=== PATIENT | female | born 1950 | race Caucasian/White ===

== ENCOUNTER 2017-02-23 10:05 | Emergency (ER) | payer BC ==
[2017-02-23] MEDS ORDERED: HYDROcod/ACETAM 5/325 MG TABLET PO STA (10:43)
[2017-02-23] MEDS ORDERED: KETOROLAC 60 MG/2 ML VIAL IM STA (10:43)
[2017-02-23] MEDS ORDERED: KETOROLAC 30 MG/ML VIAL ONE (10:53)
--- NOTE | 2017-02-23 12:21 | CT Report ---
EXAM: CT CHEST EXAM DATE: 02/23/2017 11:24 AM. CLINICAL HISTORY: Sub acute left chest wall trauma. COMPARISONS: None. TECHNIQUE: Routine helical CT imaging was performed through the chest. IV contrast: None. Reconstruct ions: Coronal and sagittal. In accordance with CT protocol optimization, one or more of the following dose reduction techniques w ere utilized for this exam: automated exposure control, adjustment of mA and/or KV based on patient s ize, or use of iterative reconstructive technique. FINDINGS: There is no evidence of a mediastinal mass or hematoma. There is no pulmonary mass, infiltrate, pleur al effusion or pneumothorax seen. No displaced fracture is identified. Mild degenerative changes of t he thoracic spine are noted. Gallstones are seen within the gallbladder. The remainder of the upper abdominal organs demonstrate a normal noncontrast CT appearance. Impression: Cholelithiasis without evidence of obstruction. [facility] Referring Provider Line: [phone] SITE ID: [id number]
[2017-02-23 12:36] VITALS: BP 141/86
--- NOTE | 2017-02-23 13:22 | ED Physician Documentation ---
History of Present Illness - Stated complaint Stated Complaint: GLF - Chief complaint Chief Complaint: General - History obtained from History obtained from: Patient - History of Present Illness Timing: How many days ago - Additonal information Additional information: This patient is a pleasant 66-year-old female who currently resides at home. She has a history of underlying hypertension otherwise she is fairly healthy. She fell in the bathtub on February 20 and from that time to the present she has persistent left-sided rib pain. She thought she was getting better but had a paroxysm of acute pain today in the left costal margin and decided to come in for evaluation. She denies any pain or injury to head, neck, chest, or abdomen other than the sided location of the left costal margin. She has not had a fever or cough there is no nausea, vomiting, abdominal pain or urinar She has a history of underlying hypertension otherwise she is fairly healthy. She fell in the bathtub on February 20 and from that time to the present she has persistent left-sided rib pain. She thought she was getting better but had a paroxysm of acute pain today in the left costal margin and decided to come in for evaluation. She denies any pain or injury to head, neck, chest, or abdomen other than the sided location of the left costal margin. She has not had a fever or cough there is no nausea, vomiting, abdominal pain or urinary symptoms. She has no extremity pain or injury. Review of systems: Pertinent positives and negatives see history of present illness otherwise all other systems have been reviewed and are normal. PD PAST MEDICAL HISTORY - Past Medical History Cardiovascular: Hypertension Respiratory: None Neuro: Fainting Endocrine/Autoimmune: None GI: None : None HEENT: Chronic hearing loss Psych: Anxiety Derm: None - Past Surgical History Past Surgical History: No - Present Medications Home Medications: Ambulatory Orders Medication Instructions Recorded Confirmed Loratadine [Claritin] 10 mg PO DAILY 09/11/13 02/23/17 Venlafaxine [Effexor] 75 mg PO DAILY 09/11/13 02/23/17 HYDROcod/ACETAM 5/325 [[place] 5/325] 1 - 2 ea PO Q6H PRN #15 tablet 02/23/17 Losartan [Cozaar] 50 mg PO DAILY 02/23/17 02/23/17 - Allergies Allergies/Adverse Reactions: Allergies Allergy/AdvReac Type Severity Reaction Status Date / Time No Known Drug Allergies Allergy Verified 02/23/17 10:15 - Social History Does the pt smoke?: No Smoking Status: Former smoker Does the pt drink ETOH?: Yes Does the pt have substance abuse?: No - POLST Patient has POLST: No PD ED PE NORMAL - Respiratory Respiratory: Other (Left costal margin pain and tenderness on palpation, small bruise to left posterior iliac crest) Results - Vitals Vitals: Vital Signs - 24 hr 02/23/17 02/23/17 10:12 12:35 Temperature 35.7 C L 36.0 C L Heart Rate 105 H 84 Respiratory 16 19 Rate Blood Pressure 138/74 H 141/86 H O2 Saturation 100 95 Oxygen O2 Source Room air PD MEDICAL DECISION MAKING - ED course ED course: Patient is well appearing female status post fall in the bathtub a couple days ago with pain and tenderness left costal margin. She is breathing comfortably and has normal pulse oximetry her belly is palpated and is soft and nontender. I suspect that she might have rib fractures a CT without contrast was that of her thoraxSo therefore a CAT scan of the patient's abdomen and pelvis was ordered. The resultsAt this CT scan are completely negative for evidence of injury. I am not suspecting any intra-abdominal etiology so was done without contrast. She was found to have incidental gallstones which were discussed with the patient. At this point in time 4 days out from her injury she is doing well I will prescribe a small amount of pain medication to ease her discomfort Disposition: To home Clinical impression: 1. Left costal margin contusion 2. Incidental cholelithiasis Departure - Departure Disposition: 01 Home, Self Care Clinical Impression: Chest wall contusion Condition: Good Instructions: ED Contusion Chest Wall Follow-Up: Mariluz Baez MD [Primary Care Provider] - Prescriptions: HYDROcod/ACETAM 5/325 [[place] 5/325] 1 - 2 ea PO Q6H PRN #15 tablet PRN Reason: Pain
== END 2017-02-23 13:27 | disposition home or self-care (01) ==
LOC: ED 10:05
DX: S20.212A Contusion of left front wall of thorax, initial encounter (principal); W19.XXXA Unspecified fall, initial encounter; Y92.002 Bathroom of unspecified non-institutional (private) residence as the place of occurrence of the external cause; I10 Essential (primary) hypertension; F41.9 Anxiety disorder, unspecified; Z87.891 Personal history of nicotine dependence
CPT/HCPCS: 71250; 96372; 99281; 99283

== ENCOUNTER 2019-04-29 16:27 | Emergency (ER) | payer MEDICARE, BC ==
[2019-04-29 17:11] LABS: BASOPHILS % (AUTO) 0.3 %; EOSINOPHILS # (AUTO) 0.1 10^3/uL (0.0-0.7); EOSINOPHILS % (AUTO) 0.8 %; HGB - HEMOGLOBIN 11.8 g/dL (12.0-16.0); LYMPHOCYTES # (AUTO) 1.2 10^3/uL (1.5-3.5); LYMPHOCYTES % (AUTO) 11.8 %; MEAN CORPUSCULAR HGB CONC 31.6 g/dL (32.0-36.0); MEAN CORPUSCULAR VOLUME 98.2 fL (81.0-99.0); MEAN PLATELET VOLUME 10.5 fL (7.9-10.8); MONOCYTES # (AUTO) 0.5 10^3/uL (0.0-1.0); MONOCYTES % (AUTO) 4.6 %; NEUTROPHILS # (AUTO) 8.1 10^3/uL (1.5-6.6); NEUTROPHILS % (AUTO) 82.1 %; PLT - PLATELET COUNT 222 10^3/uL (130-450); RED BLOOD COUNT 3.81 10^6/uL (4.20-5.40); RED CELL DISTRIBUTION WIDTH 13.4 % (12.0-15.0); WHITE BLOOD COUNT 9.8 x10^3/uL (4.8-10.8)
--- NOTE | 2019-04-29 17:11 | XRAY Report ---
Reason: chest pressure Procedure Date: 04/29/2019 Accession Number: [id number] / [id number] Procedure: XR - Chest 1 View X-Ray CPT Code: 83658 FULL RESULT: EXAM: CHEST RADIOGRAPHY EXAM DATE: 04/29/2019 04:50 PM. CLINICAL HISTORY: Chest pressure. COMPARISON: 09/11/2013 10:34 AM. TECHNIQUE: 1 view. FINDINGS: Lungs/Pleura: No focal opacities evident. No pleural effusion. No pneumothorax. Mediastinum: Heart size is normal. Trachea is midline. Other: None. IMPRESSION: Negative for an acute cardiopulmonary abnormality. [facility]
[2019-04-29 17:25] LABS: ALBUMIN 3.6 g/dL (3.2-5.5); ALBUMIN/GLOBULIN RATIO 0.9 (1.0-2.2); BILIRUBIN,TOTAL 0.2 mg/dL (0.2-1.0); CALCIUM 9.1 mg/dL (8.5-10.3); CREATININE 0.9 mg/dL (0.4-1.0); TOTAL PROTEIN 7.5 g/dL (6.7-8.2)
[2019-04-29] MEDS ORDERED: LIDOCAINE VISCOUS 2% 15 ML UDC MM STA (18:06)
[2019-04-29] MEDS ORDERED: MAG HYDROX/AL HYDROX/SIMETH 30 ML UDC PO STA (18:06)
[2019-04-29] MEDS ORDERED: ASPIRIN CHEW 81 MG TABLET PO STA (18:08)
--- NOTE | 2019-04-29 18:08 | ED Physician Documentation ---
PD HPI CHEST PAIN - Stated complaint Stated Complaint: CP - Chief complaint Chief Complaint: Cardiac - History obtained from History obtained from: Patient, Family - History of Present Illness Timing - onset: Today (68-year-old woman with no history of coronary disease developed substernal pressure that has been constant and nonradiating since 10 AM this morning. She tried some alcohol for it which is not abnormal for her In the mornings and it did not help. It is worse if she takes a deep breath. She denies nausea, sweats. She is a little dizzy with it. She had remotely negative stress test. She does not feel short of breath. No leg pain or swelling.) Review of Systems Ten Systems: 10 systems reviewed and negative Constitutional: denies: Fever, Chills Cardiac: reports: Chest pain / pressure. denies: Palpitations Respiratory: denies: Dyspnea, Cough GI: denies: Abdominal Pain PD PAST MEDICAL HISTORY - Past Medical History Past Medical History: Yes Cardiovascular: Hypertension Respiratory: None Endocrine/Autoimmune: None GI: None : None HEENT: Chronic hearing loss Psych: Anxiety Derm: None - Past Surgical History Past Surgical History: No - Present Medications Home Medications: Ambulatory Orders Medication Instructions Recorded Confirmed Loratadine [Claritin] 10 mg PO DAILY 09/11/13 02/23/17 Venlafaxine [Effexor] 75 mg PO DAILY 09/11/13 02/23/17 HYDROcod/ACETAM 5/325 [[place] 5/325] 1 - 2 ea PO Q6H PRN #15 tablet 02/23/17 Losartan [Cozaar] 50 mg PO DAILY 02/23/17 02/23/17 - Allergies Allergies/Adverse Reactions: Allergies Allergy/AdvReac Type Severity Reaction Status Date / Time No Known Drug Allergies Allergy Verified 02/23/17 10:15 - Social History Does the pt smoke?: No Smoking Status: Never smoker Does the pt drink ETOH?: Yes Does the pt have substance abuse?: No - POLST Patient has POLST: No PD ED PE NORMAL - Vitals Vital signs reviewed: Yes - General General: Alert and oriented X 3, No acute distress - HEENT HEENT: PERRL, EOMI - Neck Neck: Supple, no meningeal sign, No bony TTP - Cardiac Cardiac: RRR, No murmur - Respiratory Respiratory: No respiratory distress, Clear bilaterally - Abdomen Abdomen: Non tender - Back Back: No CVA TTP, No spinal TTP - Derm Derm: Normal color, Warm and dry - Extremities Extremities: No edema, No calf tenderness / cord - Neuro Neuro: Alert and oriented X 3, Normal speech - Psych Psych: Normal mood, Normal affect Results - Vitals Vitals: Vital Signs - 24 hr 04/29/19 04/29/19 16:37 18:00 Temperature 36.2 C L Heart Rate 100 91 Respiratory 20 19 Rate Blood Pressure 119/58 L 136/73 H O2 Saturation 97 95 Oxygen O2 Source Room air - EKG (time done) 1632 Rate: Rate (enter#) (103) Rhythm: Sinus tachycardia [place]: Normal Intervals: Normal [place] QRS: Normal Ischemia: Normal ST segments Computer interpretation: Agree with computer - Labs Labs: Laboratory Tests 04/29/19 04/29/19 04/29/19 17:02 17:02 17:02 WBC 9.8 RBC 3.81 L Hgb 11.8 L Hct 37.4 MCV 98.2 MCH 31.0 MCHC 31.6 L RDW 13.4 Plt Count 222 MPV 10.5 Neut # (Auto) 8.1 H Lymph # (Auto) 1.2 L [place] # (Auto) 0.5 Eos # (Auto) 0.1 Baso # (Auto) 0.0 Absolute Nucleated RBC 0.00 Nucleated RBC % 0.0 D-Dimer 228.5 Sodium 140 Potassium 3.8 Chloride 103 Carbon Dioxide 26 Anion Gap 11.0 BUN 11 Creatinine 0.9 Estimated GFR (MDRD) 62 L Glucose 98 Calcium 9.1 Total Bilirubin 0.2 AST 55 H ALT 65 H Alkaline Phosphatase 105 Troponin I High Sens Total Protein 7.5 Albumin 3.6 Globulin 3.9 Albumin/Globulin Ratio 0.9 L Lipase 42 04/29/19 04/29/19 17:02 19:00 WBC RBC Hgb Hct MCV MCH MCHC RDW Plt Count MPV Neut # (Auto) Lymph # (Auto) [place] # (Auto) Eos # (Auto) Baso # (Auto) Absolute Nucleated RBC Nucleated RBC % D-Dimer Sodium Potassium Chloride Carbon Dioxide Anion Gap BUN Creatinine Estimated GFR (MDRD) Glucose Calcium Total Bilirubin AST ALT Alkaline Phosphatase Troponin I High Sens 9.2 8.1 Total Protein Albumin Globulin Albumin/Globulin Ratio Lipase PD MEDICAL DECISION MAKING - ED course ED course: This is a 68-year-old woman with 7 hours of some substernal chest chest pressure. She is an alcoholic and has no abdominal tenderness. Labs reviewed initially, negative high-sensitivity troponin. Mild transaminitis. Negative chest x-ray. We will trial a GI cocktail and get a second troponin. This is a 68-year-old woman who presents with atypical chest pain that is been ongoing for about 6 hours on arrival. 2- troponins in the department and a completely nonischemic EKG. Departure - Departure Disposition: 01 Home, Self Care Clinical Impression: Atypical chest pain Condition: Good Record reviewed to determine appropriate education?: Yes Instructions: ED Chest Pain Atypical Unkn Cause Comments: Try to cut back on your drinking because your liver is inflamed. Your testing today suggests against any heart issues but she should follow-up with your doctor tomorrow and discuss stress testing. Return for new or worsening symptoms.
[2019-04-29 19:47] VITALS: BP 119/74
== END 2019-04-29 19:40 | disposition home or self-care (01) ==
LOC: ED 16:27
DX: R07.89 Other chest pain (principal); R00.0 Tachycardia, unspecified; R74.0 Nonspecific elevation of levels of transaminase and lactic acid dehydrogenase [LDH]; I10 Essential (primary) hypertension
CPT/HCPCS: 36415; 71045; 80053; 83690; 84484; 85025; 85379; 93005; 99284; A9270

== ENCOUNTER 2020-06-24 16:33 | Outpatient (CLI) | payer MEDICARE, BC | END 2020-06-24 16:34 | disposition home or self-care (01) | LOC: COV 16:33 | PROVIDERS: ATTEND Family Medicine | DX: R50.9 Fever, unspecified (principal); M79.10 Myalgia, unspecified site; R53.83 Other fatigue; R19.7 Diarrhea, unspecified; R09.81 Nasal congestion; Z20.828 Contact with and (suspected) exposure to other viral communicable diseases ==

== ENCOUNTER 2021-08-31 10:53 | Outpatient (CLI) | payer MEDICARE, BC ==
--- NOTE | 2021-09-07 11:46 | Mammography Report ---
BILATERAL DIGITAL SCREENING MAMMOGRAM 3D/2D WITH EXAGGERATED CC: 08/31/2021 CLINICAL: Routine screening. No prior exams were available for comparison. The tissue of both breasts is predominantly fatty. There is a possible focal asymmetry in the left breast at 11 o'clock middle depth. No other significant masses, calcifications, or other findings are seen in either breast. IMPRESSION: INCOMPLETE: NEEDS ADDITIONAL IMAGING EVALUATION The possible focal asymmetry in the left breast is indeterminate. Additional views with possible ult rasound are recommended. This exam was interpreted at Station ID: [id number]. NOTE: For mammograms, a report in lay terms will be sent to the patient. Approximately 15% of breast malignancies will not be visualized mammographically. In the management of a palpable breast mass, a negative mammogram must not discourage biopsy of a clinically suspicious lesion. Electronically Signed By: Ed Palomino M.D., jr/will:09/07/2021 09:40:03 ACR BI-RADS Category 0: Incomplete 3340F PARENCHYMAL PATTERN: (F) - The breast(s) demonstrate(s) diffuse fatty replacement. BI-RADS CATEGORY: (0) - 0 Mammo and [place] [id number] Immediate follow-up LATERALITY: (B)
== END 2021-08-31 10:54 | disposition home or self-care (01) ==
LOC: DI.S 10:53
PROVIDERS: ATTEND Nurse Practitioner Family
DX: Z12.31 Encounter for screening mammogram for malignant neoplasm of breast (principal); R92.8 Other abnormal and inconclusive findings on diagnostic imaging of breast

== ENCOUNTER 2022-01-09 11:04 | Outpatient (CLI) | payer MEDICARE, BC ==
[2022-01-09 15:28] LABS: BASOPHILS % (AUTO) 0.7 %; EOSINOPHILS # (AUTO) 0.1 10^3/uL (0.0-0.7); EOSINOPHILS % (AUTO) 1.4 %; HCT - HEMATOCRIT 35.9 % (37.0-47.0); HGB - HEMOGLOBIN 11.7 g/dL (12.0-16.0); LYMPHOCYTES # (AUTO) 1.3 10^3/uL (1.5-3.5); LYMPHOCYTES % (AUTO) 29.9 %; MEAN CORPUSCULAR HEMOGLOBIN 30.5 pg (27.0-31.0); MEAN CORPUSCULAR HGB CONC 32.6 g/dL (32.0-36.0); MEAN CORPUSCULAR VOLUME 93.7 fL (81.0-99.0); MEAN PLATELET VOLUME 11.4 fL (7.9-10.8); MONOCYTES # (AUTO) 0.3 10^3/uL (0.0-1.0); NEUTROPHILS # (AUTO) 2.6 10^3/uL (1.5-6.6); NEUTROPHILS % (AUTO) 61.8 %; PLT - PLATELET COUNT 201 10^3/uL (130-450); RED BLOOD COUNT 3.83 10^6/uL (4.20-5.40); RED CELL DISTRIBUTION WIDTH 14.3 % (12.0-15.0); WHITE BLOOD COUNT 4.2 x10^3/uL (4.8-10.8)
[2022-01-09 15:41] LABS: ALBUMIN/GLOBULIN RATIO 1.3 (1.0-2.2); ALKALINE PHOSPHATASE 83 IU/L (42-121); ALT ALANINE AMINOTRANSFERASE 17 IU/L (10-60); AST ASPARTATE AMINOTRANSFERASE 22 IU/L (10-42); BILIRUBIN,TOTAL 0.3 mg/dL (0.2-1.0); BUN - BLOOD UREA NITROGEN 19 mg/dL (6-20); CALCIUM 9.6 mg/dL (8.5-10.3); CARBON DIOXIDE - CO2 27 mmol/L (21-32); CHLORIDE 104 mmol/L (101-111); CHOL/HDL RATIO 1.7 (<4.4); CHOLESTEROL 187 mg/dL; GFR - MDRD 54 (>89); GLUCOSE 109 mg/dL (70-100); HDL CHOLESTEROL 113 mg/dL; LDL CHOLESTEROL,CALCULATED 60 mg/dL; LDL/HDL RATIO 0.5 (<4.4); POTASSIUM 4.1 mmol/L (3.5-5.0); SODIUM 139 mmol/L (135-145); TOTAL PROTEIN 7.2 g/dL (6.7-8.2); TRIGLYCERIDES 69 mg/dL; VLDL CHOLESTEROL 14 mg/dL
[2022-01-09 15:51] LABS: THYROID STIMULATING HORMONE 2.01 uIU/mL (0.34-5.60)
== END 2022-01-09 11:05 | disposition home or self-care (01) ==
LOC: LAB.S 11:04
PROVIDERS: ATTEND Nurse Practitioner Family
DX: R53.83 Other fatigue (principal); E53.8 Deficiency of other specified B group vitamins; E78.5 Hyperlipidemia, unspecified
CPT/HCPCS: 36415; 80053; 80061; 82746; 83721; 84443; 85025; 87086

== ENCOUNTER 2022-03-07 08:00 | Outpatient (CLI) | payer MEDICARE, BC ==
--- NOTE | 2022-03-07 17:28 | XRAY Report ---
PROCEDURE: Shoulder 2 View RT INDICATIONS: SHOULDER PX/INJURY TECHNIQUE: 2 views of the shoulder were acquired. COMPARISON: None. FINDINGS: Bones: No fractures or dislocations. There is inferior subluxation of the glenohumeral joint, joint space narrowing, and inferior osteophytosis. No suspicious bony lesions. Visualized ribs appear inta ct. Soft tissues: Trace calcific tendinitis is noted at the rotator cuff. IMPRESSION: Calcific tendinitis. Subluxed glenohumeral joint with degenerative changes. Reviewed by: Sharmaine Díaz MD on 03/07/2022 5:27 PM PDT Approved by: Sharmaine Díaz MD on 03/07/2022 5:27 PM PDT Station ID: [id number]
== END 2022-03-07 23:59 | disposition home or self-care (01) ==
LOC: DI.WOS 08:00
PROVIDERS: ATTEND Orthopaedic Surgery
DX: M75.31 Calcific tendinitis of right shoulder (principal); S43.001A Unspecified subluxation of right shoulder joint, initial encounter

== ENCOUNTER 2022-04-17 08:00 | Outpatient (CLI) | payer MEDICARE, BC ==
--- NOTE | 2022-04-17 17:11 | XRAY Report ---
PROCEDURE: Shoulder 3 View RT INDICATIONS: RIGHT SHOULDER PX TECHNIQUE: 4 views of the shoulder were acquired. COMPARISON: MRI of the shoulder dated 04/12/2022. FINDINGS: Bones: There is a minimally displaced distal right clavicular fracture. The humerus is anteriorly and inferiorly subluxed. Soft tissues: No suspicious soft tissue calcifications. IMPRESSION: 1. Minimally displaced distal right clavicular fracture. 2. Anterior inferior subluxation of the humerus at the glenohumeral joint. Reviewed by: Sharmaine Díaz MD on 04/17/2022 5:10 PM PDT Approved by: Sharmaine Díaz MD on 04/17/2022 5:10 PM PDT Station ID: [id number]
== END 2022-04-17 23:59 | disposition home or self-care (01) ==
LOC: DI.WOS 08:00
PROVIDERS: ATTEND Orthopaedic Surgery
DX: S42.031A Displaced fracture of lateral end of right clavicle, initial encounter for closed fracture (principal); S43.011A Anterior subluxation of right humerus, initial encounter

== ENCOUNTER 2022-04-30 19:59 | Outpatient (CLI) | payer MEDICARE, BC | END 2022-04-30 20:00 | disposition critical access hospital (66) | LOC: EMS 19:59 | DX: R41.0 Disorientation, unspecified (principal); S01.01XA Laceration without foreign body of scalp, initial encounter; X58.XXXA Exposure to other specified factors, initial encounter; Z72.89 Other problems related to lifestyle | CPT/HCPCS: A0425; A0429 ==

== ENCOUNTER 2022-04-30 20:35 | Emergency (ER) | payer MEDICARE, BC ==
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
--- OUTSIDE RECORDS SUMMARY | 2022-04-30 20:54 | EXTERNAL MEDICAL SUMMARY RPT | Continuity of Care Document ---
:1950 Author Organization [facility] Address [address] [place] [address] Phone Care Team Providers Name Role Phone Unavailable Unavailable Unavailable [facility] Patient Registrar Unavailable Unavailable Prakash Bran Unavailable Unavailable [facility] Patient Registrar Unavailable Unavailable Allergies No information. Encounters No information. Functional Status No information. Immunizations No information. Medications date description facility [id number]+0000 [facility] [place] [phone]+0000 [facility] [place] [phone]+0000 [facility] [place] [phone]+0000 [facility] [place] [phone]+0000 topir[facility] [place] [phone]+0000 topir[facility] [place] [phone]+0000 topir[facility] [place] [phone]+0000 top[facility] [place] [phone]+0000 [facility] [place] [phone]+0000 [facility] [place] [phone]+0000 [facility] [place] [phone]+0000 [facility] [place] [phone]+0000 [facility] [place] [phone]+0000 [facility] [place] [phone]+0000 [facility]ir[facility] [place] [phone]+0000 [facility] [place] [phone]+0000 [facility] [place] [phone]+0000 [facility] [place] [phone]+0000 [facility] [place] [phone]+0000 [facility] [place] [phone]+0000 [facility] [place] [phone]+0000 [facility] [place] [phone]+0000 [facility] [place] [phone]+0000 [facility] [place] [phone]+0000 [facility] [place] [phone]+0000 [facility] [place] [phone]+0000 [facility]ir[facility] [place] [phone]+0000 [facility]iramate [facility] [place] Problems No information. Procedures date description facility [id number]+0000 Visit Code [facility] [place] [id number]+0000 Visit Code Hold [facility] [place] [phone]+0000 Visit Code Hold [facility] [place] [phone]+0000 Visit Code [facility] [place] [phone]+0000 XR SHOULDER 2-3 VIEW [facility] [place] [phone]+0000 XR SHOULDER 2-3 VIEW [facility] [place] [phone]+0000 XR SHOULDER 2-3 VIEW [facility] [place] [phone]+0000 XR SHOULDER 2-3 VIEW [facility] [place] [phone]+0000 XR SHOULDER 2-3 V[facility] [place] [phone]+0000 XR SHOULDER COMPLETE 2 VIEW [facility] Results/Labs No information. Social History date description facility [id number]+0000 Never smoker [facility] [place] [phone]+0000 Never smoker [facility] [place] [phone]+0000 Never smoker [facility] [place] [phone]+0000 Never smoker [facility] [place] Vital Signs date measurement value units [id number]+0000 BMI BMI 39.12 kg/m2 [id number]+0000 BP_diastolic BP_diastolic 74 mmHg [id number]+0000 BP_systolic BP_systolic 139 mmHg 14958509757001+0000 heart_rate heart_rate 86 /min 81558113027017+0000 height_metric height_metric 149.86 cm [id number]+0000 height_standard height_standard 59 in [id number]+0000 respiration_rate respiration_rate 16 /min [id number]+0000 temperature_metric temperature_metric 36.5 C [id number]+0000 temperature_standard temperature_standard 9 7.7 F [id number]+0000 weight_metric weight_metric 87.54 kg [id number]+0000 weight_standard weight_standard 193 lb [id number]+0000 BMI BMI 39.12 kg/m2 34141648429283+0000 BP_diastolic BP_diastolic 74 mm[H g] 07223334427455+0000 BP_systolic BP_systolic 139 mm[Hg] 92898204993265+0000 heart_rate heart_rate 86 /min 84948851041130+0000 height_metric height_metric 149.86 cm 81863996061893+0000 height_standard height_standard 59 in 16811180539512+0000 respiration_rate respiration_rate 16 /min 27734794843686+0000 temperature_metric temperature_metric 36.5 C 24467737869585+0000 temperature_standard temperature_standard 9 7.7 F 80653117052992+0000 weight_metric weight_metric 87.54 kg 53688141148438+0000 weight_standard weight_standard 193 lb
[2022-04-30 21:05] LABS: BASOPHILS % (AUTO) 0.2 %; EOSINOPHILS # (AUTO) 0.1 10^3/uL (0.0-0.7); EOSINOPHILS % (AUTO) 2.2 %; HCT - HEMATOCRIT 33.5 % (37.0-47.0); LYMPHOCYTES # (AUTO) 1.9 10^3/uL (1.5-3.5); LYMPHOCYTES % (AUTO) 37.6 %; MEAN CORPUSCULAR HEMOGLOBIN 31.5 pg (27.0-31.0); MEAN CORPUSCULAR HGB CONC 32.8 g/dL (32.0-36.0); MEAN PLATELET VOLUME 10.1 fL (7.9-10.8); MONOCYTES # (AUTO) 0.3 10^3/uL (0.0-1.0); NEUTROPHILS # (AUTO) 2.8 10^3/uL (1.5-6.6); NEUTROPHILS % (AUTO) 54.8 %; PLT - PLATELET COUNT 172 10^3/uL (130-450); RED BLOOD COUNT 3.49 10^6/uL (4.20-5.40); RED CELL DISTRIBUTION WIDTH 13.2 % (12.0-15.0); WHITE BLOOD COUNT 5.1 x10^3/uL (4.8-10.8)
[2022-04-30 21:17] LABS: ALBUMIN 3.6 g/dL (3.2-5.5); ALBUMIN/GLOBULIN RATIO 1.1 (1.0-2.2); BILIRUBIN,TOTAL 0.3 mg/dL (0.2-1.0); CALCIUM 8.7 mg/dL (8.5-10.3); CREATININE 0.9 mg/dL (0.4-1.0); ETOH - ETHANOL 266.2 mg/dL; POTASSIUM 3.9 mmol/L (3.5-5.0)
--- NOTE | 2022-04-30 21:48 | CT Report ---
PROCEDURE: HEAD WO INDICATIONS: head injury , AMS (amnesic for event) TECHNIQUE: Noncontrast 4.5 mm thick angled axial sections acquired from the foramen magnum to the vertex. For r adiation dose reduction, the following was used: automated exposure control, adjustment of mA and/or kV according to patient size. COMPARISON: None. FINDINGS: Image quality: Excellent. CSF spaces: There is mild to moderate cerebral volume loss with prominence of the ventricles and sul ci. Basal cisterns are patent. No extra-axial fluid collections. Brain: No intracranial hemorrhage, mass, or mass effect. Sy-white matter interface is preserved. T here are subcortical and periventricular white matter hypodensities consistent with mild to moderate chronic small vessel ischemic changes. Skull and face: There is soft tissue swelling in the left posterior parietal scalp at the vertex wi th a soft tissue laceration and small subcutaneous hematoma. Calvarium and visualized facial bones ar e intact, without suspicious lesions. Sinuses: Visualized sinuses and mastoids are clear. IMPRESSION: 1. No acute intracranial abnormality. 2. Mild to moderate cerebral volume loss and chronic white matter small vessel ischemic changes. Reviewed by: Eric Curran MD on 04/30/2022 9:46 PM PDT Approved by: Eric Curran MD on 04/30/2022 9:46 PM PDT Station ID: [id number]
--- NOTE | 2022-04-30 21:49 | CT Report ---
PROCEDURE: CERVICAL SPINE WO INDICATIONS: fall, AMS, head injury TECHNIQUE: Noncontrast 3 mm thick sections acquired from the skull base to the T4 level. Sagittal and coronal r eformats were then constructed. For radiation dose reduction, the following was used: automated exp osure control, adjustment of mA and/or kV according to patient size. COMPARISON: None. FINDINGS: Image quality: Excellent. Bones: No fractures or subluxation. There is multilevel degenerative disc disease and facet joint ar thropathy. Visualized superior ribs are intact. Soft tissues: Prevertebral soft tissues are normal in thickness. No paravertebral hematomas. No ap ical pneumothoraces. IMPRESSION: 1. No fracture or subluxation. Reviewed by: Eric Curran MD on 04/30/2022 9:48 PM PDT Approved by: Eric Curran MD on 04/30/2022 9:48 PM PDT Station ID: [id number]
[2022-05-01 00:16] VITALS: BP 101/78
== END 2022-04-30 23:50 | disposition home or self-care (01) ==
LOC: EDUNIT# → ED 20:35
DX: S01.01XA Laceration without foreign body of scalp, initial encounter (principal); X58.XXXA Exposure to other specified factors, initial encounter; F10.920 Alcohol use, unspecified with intoxication, uncomplicated; I10 Essential (primary) hypertension
CPT/HCPCS: 36415; 70450; 72125; 80053; 83690; 85025; 99283; 99284; G0480; 80320

== ENCOUNTER 2023-01-11 08:00 | Outpatient (CLI) | payer MEDICARE, BC ==
--- NOTE | 2023-01-11 15:43 | XRAY Report ---
PROCEDURE: Ribs 2 View RT INDICATIONS: PLEURODYNIA TECHNIQUE: 2 views of the right ribs were acquired. COMPARISON: None. FINDINGS: Surgical changes and devices: None. Bones and chest wall: Mildly displaced fractures of the right lateral ninth and 10th ribs. Lungs and pleura: The visualized lung appears clear. No pleural effusions or pneumothorax are visib le. IMPRESSION: Mildly displaced fractures of the right lateral ninth and 10th ribs. Reviewed by: Sabas Hill on 01/11/2023 2:41 PM AKDUSTIN Approved by: Sabas Hill on 01/11/2023 2:41 PM AKDT Station ID: [id number]
--- NOTE | 2023-01-11 15:45 | XRAY Report ---
PROCEDURE: Hip w/Pelvis 2-3V RT INDICATIONS: RIGHT HIP PAIN TECHNIQUE: AP pelvis with lateral view(s) of the 2 hip(s). COMPARISON: None. FINDINGS: Bones: No fractures or dislocations. No suspicious bony lesions. Definite osteophytes and possibl e narrowing of joint space. Soft tissues: No suspicious soft tissue calcifications or masses. IMPRESSION: No acute bony abnormality. Kellgren-Miky scale of osteoarthritis: Grade 1-2: mild osteoarthritis. Reviewed by: Sabas Hill on 01/11/2023 2:43 PM AKDT Approved by: Sabas Hill on 01/11/2023 2:43 PM AKDT Station ID: [id number]
== END 2023-01-11 23:59 | disposition home or self-care (01) ==
LOC: DI.S 08:00
PROVIDERS: ATTEND Physician Assistant
DX: S22.41XA Multiple fractures of ribs, right side, initial encounter for closed fracture (principal); M16.11 Unilateral primary osteoarthritis, right hip

== ENCOUNTER 2023-01-23 16:21 | Outpatient (CLI) | payer MEDICARE, BC | END 2023-01-23 23:59 | disposition EMS.NT | LOC: EMS 16:21 | DX: Z04.1 Encounter for examination and observation following transport accident (principal); F10.90 Alcohol use, unspecified, uncomplicated ==

== ENCOUNTER 2023-08-17 12:19 | Outpatient (CLI) | payer MEDICARE, BC ==
--- NOTE | 2023-08-17 16:23 | XRAY Report ---
PROCEDURE: Shoulder 2+V RT INDICATIONS: PAIN OF RIGHT SHOULDER JOINT TECHNIQUE: 4 views of the shoulder were acquired. COMPARISON: 11/15/2021 FINDINGS: Bones: Nondisplaced impacted right distal clavicle fracture. No significant change. There is mild an terior and inferior humeral head subluxation and severe glenohumeral joint space loss. There is isaac ening of the humeral head articular surface and mild marginal spurring. No shoulder separation. Heale d right posterior seventh rib fracture. Soft tissues: There are new cloudlike soft tissue calcifications superior and posterior to the gleno id and inferior to the medial humeral head. IMPRESSION: 1. 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 2. Stable position of healing distal clavicle fracture and nearly healed right seventh rib fracture. Reviewed by: Clara Wei MD on 08/17/2023 4:22 PM PST Approved by: Clara Wei MD on 08/17/2023 4:22 PM PST Station ID: [id number]
== END 2023-08-17 12:20 | disposition home or self-care (01) ==
LOC: DI.S 12:19
PROVIDERS: ATTEND Nurse Practitioner Family
DX: S42.031D Displaced fracture of lateral end of right clavicle, subsequent encounter for fracture with routine healing (principal); S22.31XD Fracture of one rib, right side, subsequent encounter for fracture with routine healing; S43.031A Inferior subluxation of right humerus, initial encounter; M25.811 Other specified joint disorders, right shoulder

== ENCOUNTER 2023-09-26 16:10 | Outpatient (CLI) | payer MEDICARE, BC ==
--- NOTE | 2023-09-26 16:59 | XRAY Report ---
PROCEDURE: Knee 3V BL INDICATIONS: PAIN OF BILATERAL KNEE JOINTS TECHNIQUE: 3 views of the knee(s) were acquired. COMPARISON: None. FINDINGS: Bones: No fractures or dislocations. No suspicious bony lesions. There is moderate tricompartment al arthritic narrowing bilaterally. Periarticular osteophytes are present most notable in the lateral compartment bilaterally. No distinct erosions. Patellar osteophytes are present most severe on the l eft. Soft tissues: Minimal bilateral knee joint effusion. No suspicious soft tissue calcifications or mas ses. IMPRESSION: Tricompartmental arthritic changes as above, slightly more prominent laterally. Reviewed by: Delilah Garrison MD on 09/26/2023 4:58 PM PST Approved by: Delilah Garrison MD on 09/26/2023 4:58 PM PST Station ID: [id number]
== END 2023-09-26 16:11 | disposition home or self-care (01) ==
LOC: DI.S 16:10
PROVIDERS: ATTEND Nurse Practitioner Family
DX: M17.0 Bilateral primary osteoarthritis of knee (principal)